=== PATIENT | female | born 1950 | race Caucasian/White ===

== ENCOUNTER 2024-06-29 11:46 | Inpatient (IN) | payer MEDICAID, OTHER ==
[~2024-06-29] VITALS: Ht 167.6 cm; Wt 82.3 kg
[2024-06-29 12:32] LABS: Urine Bacteria FEW /hpf (None Seen); Urine Blood 3+ /uL (Negative); Urine Clarity Turbid (Clear); Urine Color Light-Yellow (Yellow); Urine Protein, UAD 3+ (Negative); Urine Specific Gravity 1.025 (1.001-1.035); Urine Urobilinogen Normal (Negative); Urine WBC 13 /hpf (0 - 5)
[2024-06-29 12:56] LABS: Basophils # (auto) 0 10 ^3/uL (0-0.2); Basophils % (auto) 0.1 % (0.0-2.0); Eosinophils # (auto) 0 10 ^3/uL (0-0.8); Lymphocytes # (auto) 0.9 10 ^3/uL (0.4-5.4); Lymphocytes % (auto) 4.4 % (10.0-50.0); Mean Corpuscular Hemoglobin 24.9 pg (28.0-32.0); Mean Corpuscular Hgb Conc. 31.8 g/dL (32.0-36.0); Mean Corpuscular Volume 78.5 fL (80.0-100.0); Monocytes # (auto) 1.7 10 ^3/uL (0-1.3); Monocytes % (auto) 8.7 % (0.0-12.0); Neutrophils % (auto) 86.8 % (37.0-80.0); Nucleated Red Blood Cells % 0.1 %; Red Blood Cells 5.22 10^6/uL (4.0-5.20); Red Cell Distribution Width 18.2 % (11.8-14.3); White Blood Cell 19.6 10^3/uL (4.4-10.8)
[2024-06-29] MEDS: ALBUTEROL SULF 2.5 MG/0.5ML(0.5%) NEB SOLN NEB ONE ×2 (12:58→16:29)
[2024-06-29] MEDS: IPRATROPIUM BROM 0.5 MG/2.5ML INH SOL NEB ONE ×2 (12:58→16:29)
[2024-06-29 13:04] LABS: Lactic Acid w/Reflex 3.1 mmol/L (0.4-2.0)
[2024-06-29] MEDS: ONDANSETRON HCL 4 MG/2 ML VIAL IV ONE (13:55)
[2024-06-29] MEDS: cefTRIAXone 1GM/50ML D5W 50 ML IV ONE (14:03)
[2024-06-29] MEDS: methylPREDNISolone SOD SUCC 125 MG/2 ML VL IV ONE (14:04)
[2024-06-29] MEDS: AZITHROMYCIN 500MG/ 250ML 250 ML IV ONE (14:04)
[2024-06-29 14:05] VITALS: PULSE 94; RESP 38; O2SAT 90
[2024-06-29 15:07] LABS: Rapid Influenza A Negative (Negative); Rapid Influenza B Negative (Negative)
[2024-06-29 15:10] LABS: COVID19 ANTIGEN SOFIA FIA NEGATIVE (NEGATIVE)
[2024-06-29 15:21] LABS: Alanine Aminotransferase 17 U/L (7-40); Albumin 4.3 g/dL (3.2-4.8); Alkaline Phosphatase 74 U/L (46-116); Anion Gap 17 (5-15); Aspartate Aminotransferase 27 U/L (13-40); BUN/Creatinine Ratio 19.3 (10.0-20.0); Bilirubin, Total 0.4 mg/dL (0.2-1.0); Blood Urea Nitrogen 28 mg/dL (9-23); Calcium 8.9 mg/dL (8.7-10.4); Carbon Dioxide 15 mmol/L (20-30); Chloride 98 mmol/L (98-107); Glucose 191 mg/dL (74-106); Potassium 3.8 mmol/L (3.5-5.1); Sodium 130 mmol/L (136-145); Total Protein 6.9 g/dL (5.7-8.2)
[2024-06-29] MEDS ORDERED: NITROGLYCERIN 0.4 MG SL TAB SL PRN (15:30)
[2024-06-29] MEDS ORDERED: MORPHINE SULFATE INJ 2 MG/ml SYRG IV PRN (15:30)
[2024-06-29] MEDS ORDERED: DOCUSATE SOD 100 MG CAP PO PRN (15:30)
[2024-06-29] MEDS: SODIUM CHLORIDE 0.9% 1,000 ML IV SCH (16:00)
[2024-06-29] MEDS: ENOXAPARIN SOD 40 MG/0.4 ML SYRINGE SC SCH (16:08)
[2024-06-29] MEDS: PANTOPRAZOLE 40 MG/10 ML VIAL INJ IV ONE (16:08)
[2024-06-29 16:29] VITALS: BP 154/75; PULSE 80; RESP 28; TEMP 98.8; O2SAT 93
[2024-06-29] MEDS: ASPirin 325 MG TAB PO ONE (16:46)
[2024-06-29] MEDS: ONDANSETRON HCL 4 MG/2 ML VIAL IV PRN (17:09)
[2024-06-29 17:45] VITALS: O2SAT 93
[2024-06-29 18:27] LABS: Lactic Acid w/Reflex 3.4 mmol/L (0.4-2.0)
[2024-06-29] MEDS ORDERED: VANCOMYCIN PER PHARMACY 0 MG IV SCH (19:00)
[2024-06-29] MEDS: SODIUM CHLORIDE 0.9% 1,000 ML IV ONE (19:00)
[2024-06-29 19:45] VITALS: PULSE 75
[2024-06-29] MEDS ORDERED: DEXTROSE (50%) 50ML SYRG IV PRN (20:00)
[2024-06-29 20:17] LABS: INR 1.13 (0.9-1.15); Prothrombin Time 11.9 sec (9.3-11.8)
[2024-06-29] MEDS: InsuLIN REG 1unit/0.01ml Soln (100units/ml) SC SCH (22:00)
[2024-06-29] MEDS: CEFEPIME 2GM/50ML NS 50 ML IV SCH (22:00)
[2024-06-29] MEDS: ACCU-CHEK COMFORT CURVE STRIP VI SCH (22:00)
[2024-06-29 22:55] VITALS: PULSE 66; RESP 20; O2SAT 4
[2024-06-29] MEDS: VANCOMYCIN 1GM/200ML 200 ML IV ONE (23:26)
[2024-06-29] MEDS: methylPREDNISolone SOD SUCC 125 MG/2 ML VL IV SCH (23:27)
[2024-06-29] MEDS: ENOXAPARIN SOD 100 MG/1 ML SYRINGE SC SCH (23:28)
[2024-06-29] MEDS ORDERED: CHOL20003 PO (23:52)
[2024-06-29] MEDS ORDERED: DAPA10TA3 PO (23:52)
[2024-06-29] MEDS ORDERED: IVAB1.7T PO (23:52)
[2024-06-29] MEDS ORDERED: ALIR75IN2 SC (23:52)
[2024-06-29] MEDS ORDERED: IPRIH INH (23:52)
[2024-06-29] MEDS ORDERED: ASPI-628 PO (23:52)
[2024-06-29] MEDS ORDERED: SACU1TAB4 PO (23:52)
[2024-06-29] MEDS ORDERED: EZET10TA22 PO (23:52)
[2024-06-29] MEDS ORDERED: PANT40TA2 PO (23:52)
[2024-06-29] MEDS ORDERED: METO25TA93 PO (23:52)
[2024-06-29] MEDS ORDERED: METF-370 PO (23:52)
[2024-06-30] VITALS (11 sets, daily range): BP systolic 111–149; BP diastolic 52–69; PULSE 66–92; RESP 14–20; TEMP 96.4–98.6; O2SAT 91–98
[2024-06-30 05:29] LABS: Basophils # (auto) 0 10 ^3/uL (0-0.2); Basophils % (auto) 0.1 % (0.0-2.0); Eosinophils # (auto) 0 10 ^3/uL (0-0.8); Hemoglobin 12.7 g/dL (12.2-16.2); Lymphocytes # (auto) 0.4 10 ^3/uL (0.4-5.4); Lymphocytes % (auto) 2.1 % (10.0-50.0); Mean Corpuscular Hemoglobin 24.8 pg (28.0-32.0); Mean Corpuscular Hgb Conc. 31.8 g/dL (32.0-36.0); Mean Corpuscular Volume 78.1 fL (80.0-100.0); Monocytes # (auto) 0.8 10 ^3/uL (0-1.3); Monocytes % (auto) 4.5 % (0.0-12.0); Neutrophils # (auto) 17.3 10 ^3/uL (1.6-8.6); Neutrophils % (auto) 93.3 % (37.0-80.0); Red Blood Cells 5.12 10^6/uL (4.0-5.20); Red Cell Distribution Width 18.9 % (11.8-14.3); White Blood Cell 18.5 10^3/uL (4.4-10.8)
[2024-06-30 05:58] LABS: Alkaline Phosphatase 68 U/L (46-116); Anion Gap 14 (5-15); Aspartate Aminotransferase 18 U/L (13-40); Calcium 8.6 mg/dL (8.7-10.4); Carbon Dioxide 18 mmol/L (20-30); Chloride 103 mmol/L (98-107); Potassium 3.6 mmol/L (3.5-5.1)
[2024-06-30 06:00] LABS: BUN/Creatinine Ratio 19.9 (10.0-20.0); Blood Urea Nitrogen 27 mg/dL (9-23); Glucose 178 mg/dL (74-106)
[2024-06-30 06:02] LABS: Albumin 3.9 g/dL (3.2-4.8)
[2024-06-30 06:03] LABS: Bilirubin, Total 0.2 mg/dL (0.2-1.0)
[2024-06-30 06:12] LABS: Alanine Aminotransferase 15 U/L (7-40)
[2024-06-30 06:15] LABS: Sodium 135 mmol/L (136-145)
[2024-06-30] MEDS: InsuLIN REG 1unit/0.01ml Soln (100units/ml) SC SCH (06:43)
[2024-06-30 07:10] LABS: Total Protein 6.8 g/dL (5.7-8.2)
[2024-06-30] MEDS ORDERED: cefTRIAXone 1GM/50ML D5W 50 ML IV SCH (09:00)
[2024-06-30] MEDS: AZITHROMYCIN 500MG/ 250ML 250 ML IV SCH (10:01)
[2024-06-30] MEDS: PANTOPRAZOLE 40 MG/10 ML VIAL INJ IV SCH (10:01)
[2024-06-30] MEDS: ASPirin 81 mg TAB PO SCH (10:09)
[2024-06-30] MEDS: EMPAGLIFLOZIN 10 MG TAB PO SCH (10:09)
[2024-06-30] MEDS: ENOXAPARIN SOD 40 MG/0.4 ML SYRINGE SC SCH (10:11)
[2024-06-30] MEDS: METOPROLOL SUCCINATE XL 50 MG TAB PO ONE (17:04)
[2024-06-30] MEDS: INSULIN LANTUS (GLARGINE) 1 /0.01ml (100units/ml) SC ONE (17:47)
[2024-06-30 18:03] LABS: Triglycerides 375 mg/dL (< 150)
[2024-06-30 18:04] LABS: LDL Cholesterol 46 mg/dL (< 100)
[2024-06-30 18:05] LABS: HDL Cholesterol 20 mg/dL (40-59)
[2024-06-30 18:29] LABS: Cholesterol 143 mg/dL (< 200)
[2024-06-30] MEDS: IVABRADINE 5 MG TAB PO SCH (21:11)
[2024-06-30] MEDS: SACUBITRIL-VALSARTAN 24mg/26mg TAB PO SCH (21:12)
[2024-06-30] MEDS: methylPREDNISolone SOD SUCC 40 MG/ML VL IV SCH (21:16)
[2024-07-01] VITALS (9 sets, daily range): BP systolic 125–145; BP diastolic 61–69; PULSE 68–92; RESP 18–21; TEMP 98–98.5; O2SAT 90–94
[2024-07-01 05:46] LABS: Basophils # (auto) 0 10 ^3/uL (0-0.2); Eosinophils # (auto) 0 10 ^3/uL (0-0.8); Mean Corpuscular Hemoglobin 24.9 pg (28.0-32.0); Red Cell Distribution Width 18.8 % (11.8-14.3)
[2024-07-01 05:49] LABS: Basophils % (auto) 0.2 % (0.0-2.0); Hematocrit 36.4 % (36.0-46.0); Hemoglobin 11.8 g/dL (12.2-16.2); Lymphocytes # (auto) 0.3 10 ^3/uL (0.4-5.4); Lymphocytes % (auto) 1.8 % (10.0-50.0); Mean Corpuscular Hgb Conc. 32.5 g/dL (32.0-36.0); Mean Corpuscular Volume 76.5 fL (80.0-100.0); Monocytes # (auto) 0.7 10 ^3/uL (0-1.3); Monocytes % (auto) 4.2 % (0.0-12.0); Neutrophils # (auto) 16.6 10 ^3/uL (1.6-8.6); Neutrophils % (auto) 93.8 % (37.0-80.0); Red Blood Cells 4.75 10^6/uL (4.0-5.20); White Blood Cell 17.7 10^3/uL (4.4-10.8)
[2024-07-01 06:06] LABS: Alanine Aminotransferase 15 U/L (7-40); Alkaline Phosphatase 66 U/L (46-116); Calcium 8.6 mg/dL (8.7-10.4); Carbon Dioxide 21 mmol/L (20-30); Chloride 107 mmol/L (98-107)
[2024-07-01 06:07] LABS: Albumin 3.5 g/dL (3.2-4.8); Anion Gap 9 (5-15); Aspartate Aminotransferase 17 U/L (13-40); BUN/Creatinine Ratio 27.4 (10.0-20.0); Bilirubin, Total 0.2 mg/dL (0.2-1.0); Blood Urea Nitrogen 29 mg/dL (9-23); Glucose 153 mg/dL (74-106); Magnesium 1.8 mg/dL (1.6-2.6); Potassium 3.5 mmol/L (3.5-5.1); Sodium 137 mmol/L (136-145); Total Protein 6.2 g/dL (5.7-8.2)
[2024-07-01] MEDS: ALBUTEROL SULF 2.5 MG/0.5ML(0.5%) NEB SOLN NEB PRN (06:54)
[2024-07-01] MEDS: IPRATROPIUM BROM 0.5 MG/2.5ML INH SOL NEB PRN (06:54)
[2024-07-01] MEDS: INSULIN LANTUS (GLARGINE) 1 /0.01ml (100units/ml) SC SCH (07:00)
[2024-07-01] MEDS: POTASSIUM EFFERVESENT TAB 25 MEQ PO ONE (09:40)
[2024-07-01] MEDS: cefTRIAXone 1GM/50ML D5W 50 ML IV SCH (09:41)
[2024-07-01] MEDS: METOPROLOL SUCCINATE XL 50 MG TAB PO SCH ×2 (09:42→20:27)
[2024-07-01] MEDS ORDERED: PATIENTS OWN MEDICATION PO SCH ×2 (12:00)
[2024-07-01] MEDS: EZETIMIBE 10MG TAB PO SCH (12:00)
[2024-07-01] MEDS ORDERED: VANCOMYCIN PER PHARMACY 0 MG IV SCH (15:00)
[2024-07-01] MEDS: VANCOMYCIN 1GM/200ML 200 ML IV ONE (16:36)
[2024-07-01] MEDS: ALIROCUMAB SC SCH (16:40)
[2024-07-01] MEDS: PANTOPRAZOLE 40 MG TAB PO SCH (17:00)
[2024-07-01] MEDS: IVABRADINE 5 MG TAB PO SCH (22:00)
[2024-07-01] MEDS: SACUBITRIL-VALSARTAN 24mg/26mg TAB PO SCH (22:07)
[2024-07-02] VITALS (25 sets, daily range): BP systolic 114–161; BP diastolic 60–90; PULSE 74–99; RESP 16–30; TEMP 97.4–98.5; O2SAT 90–96
[2024-07-02] MEDS: VANCOMYCIN 1GM/200ML 200 ML IV SCH (06:05)
[2024-07-02 06:06] LABS: Basophils # (auto) 0 10 ^3/uL (0-0.2); Basophils % (auto) 0.1 % (0.0-2.0); Eosinophils # (auto) 0 10 ^3/uL (0-0.8); Lymphocytes # (auto) 0.6 10 ^3/uL (0.4-5.4); Red Cell Distribution Width 18.8 % (11.8-14.3); White Blood Cell 15.3 10^3/uL (4.4-10.8)
[2024-07-02 06:10] LABS: Lymphocytes % (auto) 4.1 % (10.0-50.0); Mean Corpuscular Hemoglobin 24.8 pg (28.0-32.0); Mean Corpuscular Hgb Conc. 32.4 g/dL (32.0-36.0); Mean Corpuscular Volume 76.7 fL (80.0-100.0); Monocytes # (auto) 1.4 10 ^3/uL (0-1.3); Monocytes % (auto) 8.9 % (0.0-12.0); Neutrophils # (auto) 13.3 10 ^3/uL (1.6-8.6); Neutrophils % (auto) 86.9 % (37.0-80.0); Red Blood Cells 4.82 10^6/uL (4.0-5.20)
[2024-07-02 06:31] LABS: Alanine Aminotransferase 19 U/L (7-40); Albumin 3.5 g/dL (3.2-4.8); Alkaline Phosphatase 73 U/L (46-116); Anion Gap 9 (5-15); Aspartate Aminotransferase 22 U/L (13-40); BUN/Creatinine Ratio 27.5 (10.0-20.0); Blood Urea Nitrogen 28 mg/dL (9-23); Calcium 8.9 mg/dL (8.7-10.4); Carbon Dioxide 23 mmol/L (20-30); Chloride 106 mmol/L (98-107); Glucose 122 mg/dL (74-106); Potassium 3.7 mmol/L (3.5-5.1); Sodium 138 mmol/L (136-145)
[2024-07-02 06:32] LABS: Bilirubin, Total 0.2 mg/dL (0.2-1.0)
[2024-07-02] MEDS: FUROSEMIDE 40 MG/4 ML VIAL IV ONE ×2 (11:25→13:38)
[2024-07-02] MEDS: ACCU-CHEK COMFORT CURVE STRIP VI ONE (12:00)
[2024-07-02] MEDS: InsuLIN REG 1unit/0.01ml Soln (100units/ml) SC ONE (12:00)
[2024-07-02] MEDS: methylPREDNISolone SOD SUCC 40 MG/ML VL IV SCH (12:39)
[2024-07-02 15:11] LABS: Base Excess -3.3 mmol/L (-2.0-2.0)
[2024-07-02 20:51] LABS: Potassium 3.6 mmol/L (3.5-5.1)
[2024-07-02 20:58] LABS: Magnesium 1.8 mg/dL (1.6-2.6)
[2024-07-02] MEDS ORDERED: FUROSEMIDE 20 MG/2 ML VIAL IV SCH (22:00)
[2024-07-03] VITALS (27 sets, daily range): BP systolic 103–133; BP diastolic 49–72; PULSE 73–104; RESP 19–31; TEMP 96.9–97.9; O2SAT 85–95
[2024-07-03 05:21] LABS: Hemoglobin 12.8 g/dL (12.2-16.2)
[2024-07-03 05:24] LABS: Hematocrit 38.9 % (36.0-46.0); Mean Corpuscular Hemoglobin 25.4 pg (28.0-32.0); Mean Corpuscular Volume 77.1 fL (80.0-100.0); Red Blood Cells 5.05 10^6/uL (4.0-5.20); Red Cell Distribution Width 18.8 % (11.8-14.3); White Blood Cell 11.3 10^3/uL (4.4-10.8)
[2024-07-03 05:34] LABS: Band Neutrophils % (manual) 0; Basophils % (manual) 0 (0.0-2.0); Blast Cells 0; Eosinophils % (manual) 0 (0-7); Metamyelocytes % 0; Myelocytes % 0; Promyelocytes % 0; Reactive Lymphocytes 0
[2024-07-03 05:44] LABS: Alanine Aminotransferase 19 U/L (7-40); Alkaline Phosphatase 77 U/L (46-116); Anion Gap 9 (5-15); Aspartate Aminotransferase 20 U/L (13-40); BUN/Creatinine Ratio 26.1 (10.0-20.0); Blood Urea Nitrogen 30 mg/dL (9-23); Carbon Dioxide 26 mmol/L (20-30); Chloride 104 mmol/L (98-107); Glucose 180 mg/dL (74-106); Potassium 3.4 mmol/L (3.5-5.1); Sodium 139 mmol/L (136-145)
[2024-07-03 05:46] LABS: Albumin 3.7 g/dL (3.2-4.8); Bilirubin, Total 0.2 mg/dL (0.2-1.0); Total Protein 6.2 g/dL (5.7-8.2)
[2024-07-03] MEDS: FUROSEMIDE 40 MG/4 ML VIAL IV SCH (05:46)
[2024-07-03] MEDS: POTASSIUM EFFERVESENT TAB 25 MEQ PO ONE (06:35)
[2024-07-03 08:17] LABS: Base Excess 3.2 mmol/L (-2.0-2.0)
[2024-07-03 08:20] LABS: Lymphocytes % (manual) 7 (10.0-50.0); Monocytes % (manual) 9 (0-12); Platelet Estimate Adequate; Smudge Cells 1 /100 WBC
[2024-07-03] MEDS: POTASSIUM CHL 20 Meq TABLET PO SCH (10:42)
[2024-07-03] MEDS ORDERED: DEXTROSE (50%) 50ML SYRG IV PRN (19:15)
[2024-07-03] MEDS: ceFAZolin 2 GM/D5W50ml 50 ML IV SCH (21:27)
[2024-07-03] MEDS: HYDROCORTISONE SOD SUCC 100 MG/2ML INJ VIAL IV SCH (21:28)
[2024-07-03] MEDS: ACCU-CHEK COMFORT CURVE STRIP VI SCH (21:49)
[2024-07-03] MEDS: InsuLIN REG 1unit/0.01ml Soln (100units/ml) SC SCH (21:51)
[2024-07-04] VITALS (24 sets, daily range): BP systolic 101–144; BP diastolic 48–79; PULSE 73–90; RESP 12–29; TEMP 96.5–97.8; O2SAT 91–97
[2024-07-04 06:05] LABS: Red Blood Cells 5.16 10^6/uL (4.0-5.20); White Blood Cell 12.2 10^3/uL (4.4-10.8)
[2024-07-04 06:09] LABS: Hematocrit 39.8 % (36.0-46.0); Hemoglobin 12.9 g/dL (12.2-16.2); Mean Corpuscular Hgb Conc. 32.5 g/dL (32.0-36.0); Red Cell Distribution Width 19.1 % (11.8-14.3)
[2024-07-04 06:17] LABS: Basophils % (manual) 0 (0.0-2.0); Blast Cells 0; Eosinophils % (manual) 0 (0-7); Myelocytes % 0; Promyelocytes % 0; Reactive Lymphocytes 0
[2024-07-04 06:19] LABS: Alanine Aminotransferase 21 U/L (7-40); Albumin 3.8 g/dL (3.2-4.8); Alkaline Phosphatase 77 U/L (46-116); Anion Gap 8 (5-15); Aspartate Aminotransferase 18 U/L (13-40); BUN/Creatinine Ratio 31.7 (10.0-20.0); Bilirubin, Total 0.2 mg/dL (0.2-1.0); Blood Urea Nitrogen 38 mg/dL (9-23); Calcium 9.4 mg/dL (8.7-10.4); Carbon Dioxide 29 mmol/L (20-30); Chloride 104 mmol/L (98-107); Glucose 185 mg/dL (74-106); Magnesium 2.2 mg/dL (1.6-2.6); Potassium 4.2 mmol/L (3.5-5.1); Sodium 141 mmol/L (136-145); Total Protein 6.5 g/dL (5.7-8.2)
[2024-07-04] MEDS: InsuLIN REG 1unit/0.01ml Soln (100units/ml) SC SCH (06:26)
[2024-07-04] MEDS: INSULIN LANTUS (GLARGINE) 1 /0.01ml (100units/ml) SC SCH (06:27)
[2024-07-04] MEDS: FUROSEMIDE 40 MG/4 ML VIAL IV SCH (08:16)
[2024-07-04 08:28] LABS: Band Neutrophils % (manual) 7; Lymphocytes % (manual) 13 (10.0-50.0); Metamyelocytes % 1; Monocytes % (manual) 4 (0-12)
[2024-07-04 08:29] LABS: Platelet Estimate Adequate
[2024-07-05] VITALS (26 sets, daily range): BP systolic 93–143; BP diastolic 50–79; PULSE 65–101; RESP 14–32; TEMP 97.5–99.1; O2SAT 91–97
[2024-07-05 05:10] LABS: Basophils # (auto) 0 10 ^3/uL (0-0.2); Basophils % (auto) 0.1 % (0.0-2.0); Eosinophils # (auto) 0 10 ^3/uL (0-0.8); Monocytes # (auto) 0.8 10 ^3/uL (0-1.3); Neutrophils # (auto) 11.1 10 ^3/uL (1.6-8.6)
[2024-07-05 05:16] LABS: Eosinophils % (auto) 0.2 % (0.0-7.0); Hematocrit 38.8 % (36.0-46.0); Hemoglobin 12.6 g/dL (12.2-16.2); Mean Corpuscular Hemoglobin 25.1 pg (28.0-32.0); Mean Corpuscular Hgb Conc. 32.5 g/dL (32.0-36.0); Mean Corpuscular Volume 77.3 fL (80.0-100.0); Monocytes % (auto) 6.2 % (0.0-12.0); Neutrophils % (auto) 85.5 % (37.0-80.0); Red Blood Cells 5.02 10^6/uL (4.0-5.20); Red Cell Distribution Width 18.5 % (11.8-14.3)
[2024-07-05 05:32] LABS: Alanine Aminotransferase 16 U/L (7-40); Albumin 3.6 g/dL (3.2-4.8); Alkaline Phosphatase 69 U/L (46-116); Anion Gap 7 (5-15); Aspartate Aminotransferase 23 U/L (13-40); BUN/Creatinine Ratio 32.2 (10.0-20.0); Blood Urea Nitrogen 37 mg/dL (9-23); Calcium 8.9 mg/dL (8.7-10.4); Carbon Dioxide 30 mmol/L (20-30); Chloride 106 mmol/L (98-107); Glucose 169 mg/dL (74-106); Magnesium 2.1 mg/dL (1.6-2.6); Potassium 3.5 mmol/L (3.5-5.1); Sodium 143 mmol/L (136-145)
[2024-07-05 05:33] LABS: Bilirubin, Total 0.3 mg/dL (0.2-1.0); Total Protein 6.1 g/dL (5.7-8.2)
[2024-07-05] MEDS: POTASSIUM CHL 20 Meq TABLET PO ONE (06:44)
[2024-07-05] MEDS: PANTOPRAZOLE 40 MG TAB PO SCH (10:03)
[2024-07-06] VITALS (23 sets, daily range): BP systolic 98–161; BP diastolic 47–68; PULSE 65–105; RESP 9–27; TEMP 96.7–98.8; O2SAT 90–96
[2024-07-06] MEDS: IOHEXOL 350 MG/ML 100ML IJ ONE (02:51)
[2024-07-06 05:19] LABS: Basophils # (auto) 0 10 ^3/uL (0-0.2); Hemoglobin 12.5 g/dL (12.2-16.2); Monocytes # (auto) 0.7 10 ^3/uL (0-1.3); Monocytes % (auto) 5.8 % (0.0-12.0)
[2024-07-06 05:25] LABS: Basophils % (auto) 0.3 % (0.0-2.0); Eosinophils # (auto) 0 10 ^3/uL (0-0.8); Eosinophils % (auto) 0.3 % (0.0-7.0); Hematocrit 38.8 % (36.0-46.0); Lymphocytes # (auto) 1.2 10 ^3/uL (0.4-5.4); Lymphocytes % (auto) 9.8 % (10.0-50.0); Mean Corpuscular Hemoglobin 24.9 pg (28.0-32.0); Mean Corpuscular Hgb Conc. 32.1 g/dL (32.0-36.0); Mean Corpuscular Volume 77.6 fL (80.0-100.0); Neutrophils # (auto) 10.3 10 ^3/uL (1.6-8.6); Neutrophils % (auto) 83.8 % (37.0-80.0); Red Cell Distribution Width 18.3 % (11.8-14.3); White Blood Cell 12.3 10^3/uL (4.4-10.8)
[2024-07-06 05:32] LABS: Alanine Aminotransferase 14 U/L (7-40); Alkaline Phosphatase 70 U/L (46-116); Anion Gap 7 (5-15); Aspartate Aminotransferase 25 U/L (13-40); BUN/Creatinine Ratio 28.8 (10.0-20.0); Blood Urea Nitrogen 32 mg/dL (9-23); Calcium 8.8 mg/dL (8.7-10.4); Carbon Dioxide 30 mmol/L (20-30); Chloride 106 mmol/L (98-107); Glucose 172 mg/dL (74-106); Potassium 4.1 mmol/L (3.5-5.1); Sodium 143 mmol/L (136-145)
[2024-07-06 05:33] LABS: Albumin 3.5 g/dL (3.2-4.8); Bilirubin, Total 0.3 mg/dL (0.2-1.0)
[2024-07-06] MEDS: HYDROCORTISONE SOD SUCC 100 MG/2ML INJ VIAL IV SCH (08:56)
[2024-07-07] VITALS (18 sets, daily range): BP systolic 84–127; BP diastolic 44–64; PULSE 65–106; RESP 9–22; TEMP 97.3–98.6; O2SAT 89–97
[2024-07-07 04:48] LABS: Eosinophils # (auto) 0.2 10 ^3/uL (0-0.8); Lymphocytes # (auto) 2.4 10 ^3/uL (0.4-5.4)
[2024-07-07 04:54] LABS: Basophils # (auto) 0.1 10 ^3/uL (0-0.2); Basophils % (auto) 0.4 % (0.0-2.0); Eosinophils % (auto) 1.1 % (0.0-7.0); Hematocrit 39.7 % (36.0-46.0); Hemoglobin 12.5 g/dL (12.2-16.2); Mean Corpuscular Hemoglobin 24.8 pg (28.0-32.0); Mean Corpuscular Hgb Conc. 31.5 g/dL (32.0-36.0); Mean Corpuscular Volume 78.8 fL (80.0-100.0); Monocytes # (auto) 1.1 10 ^3/uL (0-1.3); Monocytes % (auto) 7.1 % (0.0-12.0); Neutrophils # (auto) 11.3 10 ^3/uL (1.6-8.6); Neutrophils % (auto) 75.4 % (37.0-80.0); Nucleated Red Blood Cells % 0.1 %; Red Blood Cells 5.03 10^6/uL (4.0-5.20); Red Cell Distribution Width 18.2 % (11.8-14.3)
[2024-07-07 04:59] LABS: Anion Gap 6 (5-15); Calcium 9.1 mg/dL (8.7-10.4); Carbon Dioxide 32 mmol/L (20-30); Chloride 106 mmol/L (98-107); Sodium 144 mmol/L (136-145)
[2024-07-07 05:05] LABS: BUN/Creatinine Ratio 31.7 (10.0-20.0); Blood Urea Nitrogen 39 mg/dL (9-23); Glucose 128 mg/dL (74-106)
[2024-07-07 05:06] LABS: Magnesium 2.1 mg/dL (1.6-2.6)
[2024-07-07] MEDS: guaiFENesin-DM 100/10mg/5ml SYR PO PRN (07:55)
[2024-07-08] VITALS (16 sets, daily range): BP systolic 95–124; BP diastolic 40–65; PULSE 60–81; RESP 16–21; TEMP 97.4–97.9; O2SAT 91–95
[2024-07-08 05:30] LABS: Hemoglobin 11.5 g/dL (12.2-16.2); Mean Corpuscular Volume 78.4 fL (80.0-100.0)
[2024-07-08 05:34] LABS: Hematocrit 36.3 % (36.0-46.0); Mean Corpuscular Hemoglobin 24.8 pg (28.0-32.0); Mean Corpuscular Hgb Conc. 31.7 g/dL (32.0-36.0); Red Blood Cells 4.64 10^6/uL (4.0-5.20); Red Cell Distribution Width 18.3 % (11.8-14.3); White Blood Cell 11.5 10^3/uL (4.4-10.8)
[2024-07-08 05:35] LABS: Basophils % (manual) 0 (0.0-2.0); Blast Cells 0; Metamyelocytes % 0; Myelocytes % 0; Promyelocytes % 0; Reactive Lymphocytes 0
[2024-07-08 05:48] LABS: Alanine Aminotransferase 13 U/L (7-40); Albumin 3.4 g/dL (3.2-4.8); Alkaline Phosphatase 69 U/L (46-116); Anion Gap 5 (5-15); Aspartate Aminotransferase 23 U/L (13-40); BUN/Creatinine Ratio 32.4 (10.0-20.0); Blood Urea Nitrogen 35 mg/dL (9-23); Calcium 8.7 mg/dL (8.7-10.4); Carbon Dioxide 33 mmol/L (20-30); Chloride 105 mmol/L (98-107); Glucose 102 mg/dL (74-106); Magnesium 1.9 mg/dL (1.6-2.6); Potassium 3.4 mmol/L (3.5-5.1); Sodium 143 mmol/L (136-145)
[2024-07-08 05:49] LABS: Bilirubin, Total 0.3 mg/dL (0.2-1.0); Total Protein 5.3 g/dL (5.7-8.2)
[2024-07-08 05:51] LABS: Band Neutrophils % (manual) 2; Eosinophils % (manual) 2 (0-7); Lymphocytes % (manual) 21 (10.0-50.0); Monocytes % (manual) 3 (0-12)
[2024-07-08 05:52] LABS: Platelet Estimate Increased
[2024-07-08 09:36] LABS: Base Excess 1.6 mmol/L (-2.0-2.0)
[2024-07-08] MEDS: POTASSIUM CHL 20 Meq TABLET PO ONE (11:51)
[2024-07-09] VITALS (12 sets, daily range): BP systolic 93–158; BP diastolic 31–85; PULSE 48–85; RESP 14–19; TEMP 97.6–98; O2SAT 90–95
[2024-07-09 04:30] LABS: Basophils # (auto) 0 10 ^3/uL (0-0.2); White Blood Cell 10.5 10^3/uL (4.4-10.8)
[2024-07-09 04:32] LABS: Basophils % (auto) 0.5 % (0.0-2.0); Eosinophils # (auto) 0.2 10 ^3/uL (0-0.8); Eosinophils % (auto) 1.5 % (0.0-7.0); Hematocrit 35.4 % (36.0-46.0); Hemoglobin 11.4 g/dL (12.2-16.2); Lymphocytes # (auto) 1.7 10 ^3/uL (0.4-5.4); Lymphocytes % (auto) 16.4 % (10.0-50.0); Mean Corpuscular Hemoglobin 25.3 pg (28.0-32.0); Mean Corpuscular Hgb Conc. 32.1 g/dL (32.0-36.0); Mean Corpuscular Volume 78.6 fL (80.0-100.0); Monocytes % (auto) 9.2 % (0.0-12.0); Neutrophils # (auto) 7.6 10 ^3/uL (1.6-8.6); Neutrophils % (auto) 72.4 % (37.0-80.0); Red Blood Cells 4.51 10^6/uL (4.0-5.20)
[2024-07-09 04:48] LABS: Albumin 3.3 g/dL (3.2-4.8); Alkaline Phosphatase 67 U/L (46-116); Anion Gap 4 (5-15); Aspartate Aminotransferase 19 U/L (13-40); BUN/Creatinine Ratio 30.8 (10.0-20.0); Bilirubin, Total 0.3 mg/dL (0.2-1.0); Blood Urea Nitrogen 32 mg/dL (9-23); Calcium 8.8 mg/dL (8.7-10.4); Carbon Dioxide 33 mmol/L (20-30); Chloride 106 mmol/L (98-107); Glucose 112 mg/dL (74-106); Potassium 4.1 mmol/L (3.5-5.1); Sodium 143 mmol/L (136-145); Total Protein 5.2 g/dL (5.7-8.2)
[2024-07-09 04:57] LABS: Alanine Aminotransferase < 9 U/L (7-40)
[2024-07-10] VITALS (8 sets, daily range): BP systolic 107–138; BP diastolic 51–67; PULSE 77–95; RESP 16–20; TEMP 36.4; O2SAT 92–96
[2024-07-10 07:12] LABS: Eosinophils # (auto) 0.1 10 ^3/uL (0-0.8); Monocytes # (auto) 0.9 10 ^3/uL (0-1.3)
[2024-07-10 07:14] LABS: Basophils # (auto) 0 10 ^3/uL (0-0.2); Basophils % (auto) 0.5 % (0.0-2.0); Calcium 9.1 mg/dL (8.7-10.4); Chloride 107 mmol/L (98-107); Eosinophils % (auto) 1.1 % (0.0-7.0); Hematocrit 39.2 % (36.0-46.0); Hemoglobin 12.2 g/dL (12.2-16.2); Lymphocytes # (auto) 1.4 10 ^3/uL (0.4-5.4); Lymphocytes % (auto) 15.4 % (10.0-50.0); Mean Corpuscular Hgb Conc. 31.2 g/dL (32.0-36.0); Mean Corpuscular Volume 80.1 fL (80.0-100.0); Monocytes % (auto) 9.6 % (0.0-12.0); Neutrophils # (auto) 6.9 10 ^3/uL (1.6-8.6); Neutrophils % (auto) 73.4 % (37.0-80.0); Nucleated Red Blood Cells % 0.2 %; Potassium 4.4 mmol/L (3.5-5.1); Red Cell Distribution Width 18.4 % (11.8-14.3); Sodium 141 mmol/L (136-145); White Blood Cell 9.4 10^3/uL (4.4-10.8)
[2024-07-10 07:15] LABS: Anion Gap 4 (5-15); Carbon Dioxide 30 mmol/L (20-30)
[2024-07-10 07:20] LABS: BUN/Creatinine Ratio 22.9 (10.0-20.0); Blood Urea Nitrogen 22 mg/dL (9-23); Glucose 110 mg/dL (74-106)
== END 2024-07-10 16:30 | disposition home or self-care (01) | DRG 871 ==
LOC: ER 11:46 → OVERFLOW 15:26 → UNDOADMIN 15:26 → TELE 19:39 → TELE-WESTW 22:27 → DOU IN ICU 07-02 15:17 → TELE-WESTW 07-08 09:41 → WEST WING 07-09 21:35
PROVIDERS: ADMIT Internal Medicine Pulmonary Disease; ATTEND Internal Medicine Pulmonary Disease
PROC: 05HD33Z Insertion of Infusion Device into Right Cephalic Vein, Percutaneous Approach (ICD-10-PCS; principal; 2024-07-03)
PROC: B54MZZA Ultrasonography of Right Upper Extremity Veins, Guidance (ICD-10-PCS; 2024-07-03)
DX: A41.9 Sepsis, unspecified organism (principal); I21.A1 Myocardial infarction type 2; I50.33 Acute on chronic diastolic (congestive) heart failure; N17.0 Acute kidney failure with tubular necrosis; J15.9 Unspecified bacterial pneumonia; J96.01 Acute respiratory failure with hypoxia; J45.901 Unspecified asthma with (acute) exacerbation; I13.0 Hypertensive heart and chronic kidney disease with heart failure and stage 1 through stage 4 chronic kidney disease, or unspecified chronic kidney disease; E11.65 Type 2 diabetes mellitus with hyperglycemia; Z20.822 Contact with and (suspected) exposure to COVID-19; E78.00 Pure hypercholesterolemia, unspecified; I25.10 Atherosclerotic heart disease of native coronary artery without angina pectoris; E11.22 Type 2 diabetes mellitus with diabetic chronic kidney disease; N18.30 Chronic kidney disease, stage 3 unspecified; E66.9 Obesity, unspecified; Z90.710 Acquired absence of both cervix and uterus; Z88.8 Allergy status to other drugs, medicaments and biological substances; Z98.61 Coronary angioplasty status; Z82.3 Family history of stroke; Z80.1 Family history of malignant neoplasm of trachea, bronchus and lung; Z82.49 Family history of ischemic heart disease and other diseases of the circulatory system; Z68.29 Body mass index [BMI] 29.0-29.9, adult
CPT/HCPCS: 36415; 36600; 71045; 71250; 80048; 80053; 80061; 80202; 81001; 82805; 82962; 83036; 83605; 83735; 83880; 84132; 84443; 84484; 85007; 85025; 85027; 85610; 87040; 87070; 87077; 87081; 87086; 87186; 87205; 87426; 87804; 93005; 93306; 94640; 96361; 96365; 96366; 96368; 96372; 96375; 97110; 97116; 97163; 97530; 99291; G0378; J0692; J1815; J2405; J2470

== ENCOUNTER 2024-07-17 08:09 | Emergency (ER) | payer OTHER ==
[~2024-07-17] VITALS: Ht 170.2 cm; Wt 80.0 kg
[~2024-07-17 08:09] MED LIST: ALIR75IN2 SC; ASPI-628 PO; CHOL20003 PO; DAPA10TA3 PO; EZET10TA22 PO; IPRIH INH; IVAB1.7T PO; METF-370 PO; METO25TA93 PO; PANT40TA2 PO; SACU1TAB4 PO
[2024-07-17] MEDS: SODIUM CHLORIDE 0.9% 1,000 ML IV ONE (09:12)
[2024-07-17] MEDS: methylPREDNISolone SOD SUCC 125 MG/2 ML VL IV ONE (09:12)
[2024-07-17 09:26] LABS: Basophils # (auto) 0.1 10 ^3/uL (0-0.2); Basophils % (auto) 0.9 % (0.0-2.0); Eosinophils # (auto) 0.1 10 ^3/uL (0-0.8); Eosinophils % (auto) 1.5 % (0.0-7.0); Hematocrit 39.1 % (36.0-46.0); Hemoglobin 12.4 g/dL (12.2-16.2); Lymphocytes % (auto) 11.1 % (10.0-50.0); Mean Corpuscular Hemoglobin 25.9 pg (28.0-32.0); Mean Corpuscular Hgb Conc. 31.8 g/dL (32.0-36.0); Mean Corpuscular Volume 81.5 fL (80.0-100.0); Monocytes # (auto) 0.7 10 ^3/uL (0-1.3); Monocytes % (auto) 7.5 % (0.0-12.0); Neutrophils # (auto) 7.1 10 ^3/uL (1.6-8.6); Nucleated Red Blood Cells % 0.1 %; Platelet Count (auto) 323 10^3/uL (140-450); Red Blood Cells 4.79 10^6/uL (4.0-5.20); White Blood Cell 8.9 10^3/uL (4.4-10.8)
[2024-07-17 09:28] LABS: Red Cell Distribution Width 20.3 % (11.8-14.3)
[2024-07-17 09:52] LABS: Rapid Influenza A Negative (Negative); Rapid Influenza B Negative (Negative)
[2024-07-17 09:55] LABS: Albumin 3.9 g/dL (3.2-4.8); Alkaline Phosphatase 68 U/L (46-116); Anion Gap 4 (5-15); Aspartate Aminotransferase 11 U/L (13-40); BUN/Creatinine Ratio 9.8 (10.0-20.0); Blood Urea Nitrogen 11 mg/dL (9-23); Calcium 9.3 mg/dL (8.7-10.4); Carbon Dioxide 26 mmol/L (20-30); Chloride 106 mmol/L (98-107); Glucose 187 mg/dL (74-106); Potassium 3.9 mmol/L (3.5-5.1); Sodium 136 mmol/L (136-145)
[2024-07-17 09:55] LABS: COVID19 ANTIGEN SOFIA FIA POSITIVE (NEGATIVE)
[2024-07-17 09:56] LABS: Bilirubin, Total 0.6 mg/dL (0.2-1.0); Total Protein 6.6 g/dL (5.7-8.2)
[2024-07-17 10:00] VITALS: PULSE 80; RESP 18; O2SAT 95
[2024-07-17 10:05] LABS: Alanine Aminotransferase < 9 U/L (7-40)
[2024-07-17 11:59] LABS: Urine Bacteria FEW /hpf (None Seen); Urine Blood 1+ /uL (Negative); Urine Clarity Clear (Clear); Urine Color Light-Yellow (Yellow); Urine Protein, UAD TRACE (Negative); Urine Specific Gravity 1.025 (1.001-1.035); Urine Urobilinogen Normal (Negative); Urine WBC 2 /hpf (0 - 5); Urine pH 5.5 (5.0-9.0)
[2024-07-17] MEDS ORDERED: AZIT1POW PO (11:59)
[2024-07-17 12:00] VITALS: BP 122/56; PULSE 78; RESP 16; TEMP 97.8; O2SAT 94
== END 2024-07-17 12:06 | disposition home or self-care (01) ==
LOC: ER 08:09
DX: U07.1 COVID-19 (principal); E11.9 Type 2 diabetes mellitus without complications; E78.5 Hyperlipidemia, unspecified; I25.2 Old myocardial infarction; I11.0 Hypertensive heart disease with heart failure; I50.9 Heart failure, unspecified; I25.10 Atherosclerotic heart disease of native coronary artery without angina pectoris; J45.909 Unspecified asthma, uncomplicated; Z90.710 Acquired absence of both cervix and uterus; Z98.890 Other specified postprocedural states
CPT/HCPCS: 36415; 71045; 80053; 81001; 83605; 84484; 85025; 87040; 87426; 87804; 93005; 96361; 96374; 99285; J2919; J7030

== ENCOUNTER 2024-08-09 10:25 | Emergency (ER) | payer OTHER ==
[~2024-08-09] VITALS: Ht 170.2 cm; Wt 78.4 kg
[~2024-08-09 10:25] MED LIST changes: +AZIT1POW PO
[2024-08-09 12:03] VITALS: BP 155/58; PULSE 89; RESP 18; TEMP 97.9; O2SAT 94
[2024-08-09] MEDS ORDERED: DAPA10TA3 PO (12:53)
[2024-08-09] MEDS ORDERED: ALIR75IN2 SC (12:53)
[2024-08-09] MEDS ORDERED: METF-370 PO (12:53)
[2024-08-09] MEDS ORDERED: PANT40T PO (12:53)
[2024-08-09] MEDS ORDERED: IVAB5TAB2 PO (12:53)
[2024-08-09] MEDS ORDERED: ASPI81CH59 PO (12:53)
[2024-08-09] MEDS ORDERED: METO1TAB9 PO (12:53)
[2024-08-09] MEDS ORDERED: SACU1TAB4 PO (12:53)
[2024-08-09] MEDS ORDERED: METO-289 PO (12:53)
[2024-08-09 13:37] LABS: Basophils # (auto) 0.1 10 ^3/uL (0-0.2); Lymphocytes # (auto) 1.3 10 ^3/uL (0.4-5.4); White Blood Cell 10.5 10^3/uL (4.4-10.8)
[2024-08-09 13:40] LABS: Basophils % (auto) 0.8 % (0.0-2.0); Eosinophils # (auto) 0.2 10 ^3/uL (0-0.8); Eosinophils % (auto) 1.5 % (0.0-7.0); Hematocrit 34.1 % (36.0-46.0); Hemoglobin 11.3 g/dL (12.2-16.2); Lymphocytes % (auto) 12.4 % (10.0-50.0); Mean Corpuscular Hemoglobin 26.1 pg (28.0-32.0); Mean Corpuscular Volume 79.2 fL (80.0-100.0); Monocytes % (auto) 9.5 % (0.0-12.0); Neutrophils # (auto) 7.9 10 ^3/uL (1.6-8.6); Neutrophils % (auto) 75.8 % (37.0-80.0); Nucleated Red Blood Cells % 0.1 %; Platelet Count (auto) 572 10^3/uL (140-450); Red Blood Cells 4.31 10^6/uL (4.0-5.20); Red Cell Distribution Width 19.5 % (11.8-14.3)
[2024-08-09 13:47] LABS: Chloride 106 mmol/L (98-107); Potassium 3.1 mmol/L (3.5-5.1); Sodium 140 mmol/L (136-145)
[2024-08-09 13:48] LABS: Anion Gap 10 (5-15); Calcium 8.1 mg/dL (8.7-10.4); Carbon Dioxide 24 mmol/L (20-30)
[2024-08-09 13:53] LABS: BUN/Creatinine Ratio 16.1 (10.0-20.0); Blood Urea Nitrogen 15 mg/dL (9-23); Glucose 130 mg/dL (74-106)
[2024-08-09] MEDS: LIDOCAINE 1% HCL (LOCAL ANESTH.) INJ 20ML MDV ID ONE (14:38)
[2024-08-09] MEDS: TRIAMCINOLONE 40MG/ML 1ML VIAL IX ONE (14:38)
== END 2024-08-09 14:50 | disposition home or self-care (01) ==
LOC: ER 10:25
DX: M65.9 Synovitis and tenosynovitis, unspecified (principal); M65.4 Radial styloid tenosynovitis [de Quervain]; J45.909 Unspecified asthma, uncomplicated; I50.9 Heart failure, unspecified; I25.10 Atherosclerotic heart disease of native coronary artery without angina pectoris; E11.9 Type 2 diabetes mellitus without complications; I25.2 Old myocardial infarction; E78.5 Hyperlipidemia, unspecified; Z90.710 Acquired absence of both cervix and uterus
CPT/HCPCS: 29125; 36415; 64450; 71045; 73110; 80048; 85025; 99284; J3301; J2001